=== PATIENT | female | born 1965 | race Caucasian/White ===

== ENCOUNTER 2018-01-05 06:58 | Day surgery (SDC) | payer OTHER ==
[~2018-01-05] VITALS: Ht 157.5 cm; Wt 67.1 kg
[~2018-01-05 06:58] MED LIST: ATORVASTATIN CA10 MG PO; CALTRATE 600 +1 EAC1 PO; ESTRACE0.5 MG PO; PROMETRIUM100 MG PO
[2018-01-05 07:24] VITALS: BP 131/77
[2018-01-05 07:26] VITALS: BP 131/77
[2018-01-05] MEDS ORDERED: MOTRIN600 MG PO (10:06)
[2018-01-05] MEDS ORDERED: NORCO 5/3251 TABLET PO (10:06)
[2018-01-05 11:05] VITALS: BP 121/64
[2018-01-05 12:20] VITALS: BP 111/66
== END 2018-01-05 12:35 | disposition home or self-care (01) ==
LOC: SDC 06:58
DX: N84.0 Polyp of corpus uteri (principal); N84.1 Polyp of cervix uteri; N80.0 Endometriosis of uterus; N95.0 Postmenopausal bleeding; F41.8 Other specified anxiety disorders; E78.5 Hyperlipidemia, unspecified; E66.9 Obesity, unspecified; Z68.26 Body mass index [BMI] 26.0-26.9, adult
CPT/HCPCS: 88305; J0131; J1100; J1885; J2250; J2405; J3010; Q0175